=== PATIENT | female | born 1990 | race Caucasian/White ===

== ENCOUNTER 2021-12-12 15:27 | Emergency (ER) | payer SELFPAY ==
[~2021-12-12] VITALS: Ht 157.5 cm; Wt 54.4 kg
[2021-12-12 15:30] VITALS: BP 140/94
--- NOTE | 2021-12-12 15:40 | NUR ---
PT SEEN AND EXAMINED BY .
--- NOTE | 2021-12-12 15:51 | NUR ---
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
[2021-12-12] MEDS ORDERED: KETOROLAC TROMETHAMINE INJ 30 MG/ML VIAL ONE (15:56)
[2021-12-12] MEDS ORDERED: KETOROLAC TROMETHAMINE INJ 30 MG/ML VIAL IM ONE (16:00)
[2021-12-12] MEDS ORDERED: HYDR-4209 PO (17:00)
[2021-12-12] MEDS ORDERED: IBUP-1957 PO (17:00)
--- NOTE | 2021-12-12 17:08 | NUR ---
Patient discharged to home in stable condition. Written and verbal after care instructions given. Patient verbalizes understanding of instruction.
== END 2021-12-12 17:09 | disposition home or self-care (01) ==
LOC: ER 15:29
DX: S60.222A Contusion of left hand, initial encounter (principal); Z60.2 Problems related to living alone; Z79.899 Other long term (current) drug therapy; Y08.89XA Assault by other specified means, initial encounter; Y93.89 Activity, other specified; Y92.89 Other specified places as the place of occurrence of the external cause; Y99.8 Other external cause status
CPT/HCPCS: 70450; 73110; 73130; 96372; 99284; J1885